=== PATIENT | female | born 1950 | race Caucasian/White ===

== ENCOUNTER 2022-06-13 07:30 | Outpatient (RCR) | payer MEDICARE, SELFPAY | END 2022-09-23 11:10 | disposition home or self-care (01) | PROVIDERS: PCP Family Medicine; Visit Provider Family Medicine | DX: R26.89 Other abnormalities of gait and mobility (principal); Z51.89 Encounter for other specified aftercare | CPT/HCPCS: 97110; 97162 ==

== ENCOUNTER 2024-07-22 08:57 | Emergency (ER) | payer MEDICARE, SELFPAY ==
[2024-07-22 08:59] VITALS: BP 167/100; PULSE 68; RESP 18; TEMP 36.5; O2SAT 95; BMI 32.3
--- NOTE | 2024-07-22 09:32 | CRLHL7_ITS ---
For Patients: As a result of the Century Cures Act, medical imaging exams and procedure reports are released immediately into your electronic medical record. You may view this report before your referring provider. If you have questions, please contact your health care provider. INDICATION: Right lower quadrant pain. COMPARISON: None. TECHNIQUE: CT of the abdomen and pelvis with intravenous contrast. Multiplanar axial, coronal, and sagittal reformats were reconstructed. Contrast: 108 mL Isovue 370. FINDINGS: Lung bases: Mild basilar atelectasis. 2 millimeter pulmonary nodule in the right lower lobe on series 3, image 8. Liver: There is a 3 centimeter benign hepatic hemangioma in hepatic segment VII. No worrisome liver lesions. Gallbladder and bile ducts: There is focal gallbladder wall thickening at the fundus that measures up to 8 millimeters and protrudes beyond the expected location of the margin of the gallbladder on series 2, image 50. No calcified gallstones. No bile duct dilation. Pancreas: Normal. Spleen: Normal. Adrenal glands: Normal. Kidneys: Normal parenchyma. No cyst or solid mass. No calculi. No urinary tract dilation. Urinary bladder: Normal. Pelvis: There is a 2.7 centimeter subserosal partially exophytic left fundal uterine lesion, probably a fibroid. Postmenopausal appearance of both ovaries. Vessels: Atherosclerotic vascular calcifications. Very minimal ectasia of the infrarenal abdominal aorta with a maximum diameter of 2.3 cm. Mesenteric vessels are widely patent. Bowel: No dilated or inflamed bowel. There is a focally inflamed epiploic fatty appendage along the inferolateral cecum. See series 4, image 56. No diverticulosis or diverticulitis. The appendix is normal. Moderate stool burden. Lymph nodes: No adenopathy. Peritoneum: No ascites. No free air. Abdominal wall: Tiny fat containing umbilical hernia. Bones: Right hip arthroplasty. Left hip arthritis. Disc and facet degeneration. No acute or healing fracture. No focal worrisome bone lesions. IMPRESSION: 1. Epiploic appendagitis of the cecum. 2. There is a 2 millimeter right lower lobe pulmonary nodule. Given the overwhelming likelihood of benignity, no specific further follow-up is recommended unless the patient is high risk for primary pulmonary malignancy. In that case, follow-up CT in 1 year can be considered. Please note that all CT scans at this facility use dose modulation, iterative reconstruction, and/or weight-based dosing when appropriate to reduce radiation dose to as low as reasonably achievable. Dictated by Kamila Lawrence MD @ 07/22/2024 11:13:58 AM (Electronically Signed)
[2024-07-22] MEDS: 0.9 % SODIUM CHLORIDE 500 ML 500 ML IV (09:40)
[2024-07-22 10:04] LABS: Basophils Absolute Auto 0.02 K/uL (0.00-0.30); Basophils Percent Auto 0.3 % (0.0-3.0); Eosinophils Absolute Auto 0.12 K/uL (0.00-0.50); Eosinophils Percent Auto 1.7 % (0.0-7.0); Hematocrit 42.8 % (33.0-51.0); Hemoglobin* 14.1 gm/dL (12.0-16.0); Immature Granulocytes Abs Auto 0.01 K/uL (0.00-0.30); Immature Granulocytes Pct Auto 0.1 %; Lymphocytes Absolute Auto 1.43 K/uL (0.90-2.90); Lymphocytes Percent Auto 20.7 % (20-44); Mean Corpuscular HGB Conc 33 gm/dL (32-36); Mean Corpuscular Hemoglobin 32 pg (26-34); Mean Corpuscular Volume 96 fL (80-100); Monocytes Percent Auto 10.7 % (0.0-11.0); Neutrophils Percent Auto 66.5 % (42.0-72.0); Platelet Count* 192 K/uL (140-440); RDW Coefficient of Variation % 12.8 % (11.5-15.5); Red Blood Count 4.48 m/uL (4.00-5.20); White Blood Count* 6.92 K/uL (4.50-11.00)
[2024-07-22 10:06] LABS: Slide Review Reflex No
[2024-07-22 10:11] LABS: Chloride* 108 mmol/L (96-114)
[2024-07-22 10:12] LABS: Albumin* 3.7 g/dL (3.3-5.0); Sodium* 138 mmol/L (135-149)
[2024-07-22 10:14] LABS: Anion Gap 5 mEq/L (7-15); Carbon Dioxide* 25 mmol/L (20-32); Creatinine* 0.7 mg/dL (0.5-1.5); Estimated Glomerular Filt Rate 91 ml/min
[2024-07-22 10:15] LABS: Alanine Aminotransferase* 21 U/L (4-35); Alkaline Phosphatase* 70 U/L (40-150); Aspartate Amino Transferase* 25 U/L (12-35); Bilirubin Direct* 0.2 mg/dL (0.0-0.5); Bilirubin Total* 0.7 mg/dL (0.1-1.5); Blood Urea Nitrogen* 21 mg/dL (7-30); Calcium* 8.8 mg/dL (8.4-10.6); Glucose* 97 mg/dL (60-115); Lipase* 124 U/L (23-300); Total Protein* 6.2 g/dL (6.0-8.3)
[2024-07-22 10:19] LABS: C Reactive Protein* 0.6 mg/dL (0.5-1.0)
[2024-07-22 10:29] LABS: Potassium* 4.1 mmol/L (3.6-5.1)
--- NOTE | 2024-07-22 10:33 | ED.GENADULT ---
HPI - General Adult General Date Seen: 07/22/24 Chief complaint: Abdominal Pain Stated complaint: Pain in right side Time Seen by Provider: 07/22/24 09:04 Source: patient History of Present Illness HPI narrative: Patient is a 73-year-old woman here with her for evaluation of right-sided abdominal pain which started yesterday around dinnertime. She says it started just before she started eating but then got a little worse. She has not had anything to eat since then, but she feels like she could eat. She has not had nausea or vomiting. She had 1 episode of a large amount of soft stool yesterday. She has not had fevers. Denies urinary symptoms. Denies abdominal surgeries. Denies history of similar pain. She quit smoking a long time ago, has a beer and or glass of wine nightly. Related Data Home Medications ?Medication ?Instructions ?Recorded ?Confirmed albuterol sulfate 90 mcg/actuation inhalation 07/22/24 aerosol inhaler ezetimibe 10 mg tablet 10 mg PO DAILY 07/22/24 07/22/24 losartan 100 mg tablet 100 mg PO DAILY 07/22/24 07/22/24 Allergies Allergy/AdvReac Type Severity Reaction Status Date / Time No Known Drug Allergies Allergy Verified 07/22/24 11:00 Review of Systems Status of ROS: Reports: 10 or more systems reviewed and unremarkable except as noted in History and below Exam Narrative: Exam Narrative: Vital signs reviewed In general, alert, nontoxic elderly woman. She looks comfortable. Head: Normocephalic, atraumatic. Eyes: Sclera clear. Pupils equal and reactive. ENT: Mucous membranes moist. Neck: Supple without adenopathy. Heart: Regular rate and rhythm without murmur. Lungs: Clear. No increased work of breathing, crackles or wheezes. Abdomen: Soft, nondistended. She has some mid and lower right sided tenderness including McBurney's point. She does not have rebound or guarding. She has no upper abdominal tenderness, negative Plascenica sign. Extremities: Well perfused, pulses intact. No significant edema. Neurologic: Alert, conversant. Speech fluent, face symmetric. Moves all extremities equally. Skin: Warm, dry well perfused. Affect: Normal. Const: Vital Signs, click to edit/add: Vital Signs - 24 hr 07/22/24 08:59 07/22/24 11:16 Temperature 97.7 F Pulse Rate [Right Pulse Oximeter] 68 37 L Respiratory Rate 18 18 Blood Pressure [Le ft Upper Arm] 167/100 H 147/102 H Pulse Oximetry 95 95 Oxygen Delivery Me thod Room Air Room Air Course Course ED Course: Overall, exam raises the possibility of appendicitis and I think imaging and labs as warranted. Other diagnostic considerations would include diverticulitis, urinary tract infection, kidney stone, colitis, among others. She declines any need for anything for pain right now. I ordered 500 mL of normal saline IV in addition to labs. CBC shows a normal white blood cell count of 7 with a normal diff. Hemoglobin is 14. Metabolic panel is within normal limits, not concerning. LFTs are normal, CRP is 0.6. Lipase is normal at 124. CT scan of the abdomen by my review showed just a little bit of stranding around the cecum of uncertain significance, I did not see diverticuli. Final radiology read linked below of epiploic appendagitis. There is a tiny pulmonary nodule without specific follow-up recommended unless she is very high risk, which with only her remote history of smoking I do not think she is. She did have a brief episode of bradycardia into the 30s. She was perhaps slightly dizzy with this but not significantly. Her blood pressure remained in the 140 systolic. We did do an EKG, but that time the bradycardia had resolved and she had a heart rate of 61, sinus rhythm. Right bundle branch block is noted. She has a normal corrected QT and a normal WI. I have discussed this with her. I think it be reasonable to relate that her primary care doctor. They may elect to do something like a ZIO patch versus observation for now. Reviewed reasons to return in terms of her abdominal symptoms as well as her bradycardia. She is comfortable with discharge. Vital Signs Vital signs: Initial Vital Signs Temperature 97.7 F 07/22/24 08:59 Temperature Source Temporal Artery Scan 07/22/24 08:59 Pulse Rate 68 07/22/24 08:59 Pulse Rhythm Regular 07/22/24 08:59 Respiratory Rate 18 07/22/24 08:59 Blood Pressure 167/100 H 07/22/24 08:59 Blood Pressure Mean 122 H 07/22/24 08:59 Blood Pressure Position Sitting 07/22/24 08:59 Pulse Oximetry 95 07/22/24 08:59 Oxygen Delivery Method Room Air 07/22/24 08:59 Vital Signs Temperature 97.7 F 07/22/24 08:59 Pulse Rate 68 07/22/24 08:59 Respiratory Rate 18 07/22/24 08:59 Blood Pressure 167/100 H 07/22/24 08:59 Pulse Oximetry 95 07/22/24 08:59 Oxygen Delivery Method Room Air 07/22/24 08:59 Temperature 97.7 F 07/22/24 08:59 Pulse Rate 37 L 07/22/24 11:16 Respiratory Rate 18 07/22/24 11:16 Blood Pressure 147/102 H 07/22/24 11:16 Pulse Oximetry 95 07/22/24 11:16 Oxygen Delivery Method Room Air 07/22/24 11:16 Medications Administered Medications: Discontinued Medications Generic Name Dose Route Start Last Admin Trade Name Freq PRN Reason Stop Dose Admin Sodium Chloride 500 mls @ 500 mls/hr 07/22/24 09:32 07/22/24 10:24 0.9 % Sodium Chloride 500 Ml IV 07/22/24 10:31 Infused .Q1H ONE Infusion Medical Decision Making Lab Data Labs: Lab Results 07/22/24 07/22/24 Range/Units 09:45 10:45 WBC 6.92 (4.50-11.00) K/uL RBC 4.48 (4.00-5.20) m/uL Hgb 14.1 (12.0-16.0) gm/dL Hct 42.8 (33.0-51.0) % MCV 96 (80-100) fL MCH 32 (26-34) pg MCHC 33 (32-36) gm/dL RDW Coeff of [place] 12.8 (11.5-15.5) % Plt Count 192 (140-440) K/uL Neut % (Auto) 66.5 (42.0-72.0) % Lymph % (Auto) 20.7 (20-44) % [place] % (Auto) 10.7 (0.0-11.0) % Eos % (Auto) 1.7 (0.0-7.0) % Baso % (Auto) 0.3 (0.0-3.0) % Neut # (Auto) 4.60 (1.7-7.0) K/uL Lymph # (Auto) 1.43 (0.90-2.90) K/uL [place] # (Auto) 0.70 (0.00-0.90) K/UL Eos # (Auto) 0.12 (0.00-0.50) K/uL Baso # (Auto) 0.02 (0.00-0.30) K/uL Abs Immat Gran (auto) 0.01 (0.00-0.30) K/uL Imm/Tot Granulo (auto) 0.1 % Sodium 138 (135-149) mmol/L Potassium 4.1 (3.6-5.1) mmol/L Chloride 108 (96-114) mmol/L Carbon Dioxide 25 (20-32) mmol/L Anion Gap 5 L (7-15) mEq/L BUN 21 (7-30) mg/dL Creatinine 0.7 (0.5-1.5) mg/dL Estimated Creat Clear 46.90 Estimated GFR 91 ml/min Glucose 97 (60-115) mg/dL Calcium 8.8 (8.4-10.6) mg/dL Total Bilirubin 0.7 (0.1-1.5) mg/dL Direct Bilirubin 0.2 (0.0-0.5) mg/dL AST 25 (12-35) U/L ALT 21 (4-35) U/L Alkaline Phosphatase 70 (40-150) U/L C-Reactive Protein 0.6 (0.5-1.0) mg/dL Total Protein 6.2 (6.0-8.3) g/dL Albumin 3.7 (3.3-5.0) g/dL Lipase 124 (23-300) U/L Urine Color Yellow (Yellow) Urine Appearance Clear (Clear) Urine pH 7.5 (5.0-8.5) Ur Specific [place] 1.020 (1.000-1.030) Urine Protein Negative (Negative) Urine Glucose (UA) Negative (Negative) Urine Ketones Negative (Negative) Urine Blood Negative (Negative) Urine Nitrite Negative (Negative) Urine Bilirubin Negative (Negative) Urine Urobilinogen 0.2 (0.2-1.0) Ur Leukocyte Esterase Negative (Negative) Urine RBC 0-2 (0-2) Urine WBC 0-2 (0-5) Ur Squamous Epith Cells Few (None-Few) Urine Bacteria None (None) Imaging Data CT scan - abdomen: Attestation: I have reviewed the pertinent imaging results. Radiologist's impression: Patient: Shanon Martin MR#: [id number] : 1950 Acct:[id number] Loc: ED Service Date: 07/22/[address]: Ordering Physician: Analy Roche M.D. Date of Service: 07/22/24 Procedure(s): CT abdomen pelvis w con Accession Number(s): [id number] cc: Analy Roche M.D.; Luzma Watts D.O.~ For Patients: As a result of the Cures Act, medical imaging exams and procedure reports are released immediately into your electronic medical record. You may view this report before your referring provider. If you have questions, please contact your health care provider. INDICATION: Right lower quadrant pain. COMPARISON: None. TECHNIQUE: CT of the abdomen and pelvis with intravenous contrast. Multiplanar axial, coronal, and sagittal reformats were reconstructed. Contrast: 108 mL Isovue 370. FINDINGS: Lung bases: Mild basilar atelectasis. 2 millimeter pulmonary nodule in the right lower lobe on series 3, image 8. Liver: There is a 3 centimeter benign hepatic hemangioma in hepatic segment VII. No worrisome liver lesions. Gallbladder and bile ducts: There is focal gallbladder wall thickening at the fundus that measures up to 8 millimeters and protrudes beyond the expected location of the margin of the gallbladder on series 2, image 50. No calcified gallstones. No bile duct dilation. Pancreas: Normal. Spleen: Normal. Adrenal glands: Normal. Kidneys: Normal parenchyma. No cyst or solid mass. No calculi. No urinary tract dilation. Urinary bladder: Normal. Pelvis: There is a 2.7 centimeter subserosal partially exophytic left fundal uterine lesion, probably a fibroid. Postmenopausal appearance of both ovaries. Vessels: Atherosclerotic vascular calcifications. Very minimal ectasia of the infrarenal abdominal aorta with a maximum diameter of 2.3 cm. Mesenteric vessels are widely patent. Bowel: No dilated or inflamed bowel. There is a focally inflamed epiploic fatty appendage along the inferolateral cecum. See series 4, image 56. No diverticulosis or diverticulitis. The appendix is normal. Moderate stool burden. Lymph nodes: No adenopathy. Peritoneum: No ascites. No free air. Abdominal wall: Tiny fat containing umbilical hernia. Bones: Right hip arthroplasty. Left hip arthritis. Disc and facet degeneration. No acute or healing fracture. No focal worrisome bone lesions. IMPRESSION: 1. Epiploic appendagitis of the cecum. 2. There is a 2 millimeter right lower lobe pulmonary nodule. Given the overwhelming likelihood of benignity, no specific further follow-up is recommended unless the patient is high risk for primary pulmonary malignancy. In that case, follow-up CT in 1 year can be considered. Please note that all CT scans at this facility use dose modulation, iterative reconstruction, and/or weight-based dosing when appropriate to reduce radiation dose to as low as reasonably achievable. Dictated by Kamila Lawrence MD @ 07/22/2024 11:13:58 AM Discharge Plan Discharge Clinical Impression: Epiploic appendagitis Patient Disposition: Home, Self-Care Condition: Stable Additional Instructions: Epiploic appendagitis does not usually require specific treatment. You can continue to use a leave. Diet can be as tolerated. If you have worsening or severe pain, fevers, vomiting or other worsening, return to the ER for re-evaluation. You had a brief episode of bradycardia here. Your EKG is normal, bradycardia had resolved by the time of the EKG. I would recommend that you talk with your primary care doctor about this. It may be reasonable to set up home monitoring to see if you are having episodes of bradycardia. If you notice significant lightheadedness or fainting, chest pain or other new symptoms, return to the ER. Prescriptions: No Action albuterol sulfate 90 mcg/actuation HFA aerosol inhaler inhalation losartan 100 mg tablet 100 mg PO DAILY ezetimibe 10 mg tablet 10 mg PO DAILY Follow Up/Referrals: Luzma Watts DO [Primary Care Provider] - Stand Alone Forms: [employer] Info Instructions
[2024-07-22 10:52] LABS: Appearance Urine Clear (Clear); Bilirubin Urine Negative (Negative); Blood Urine Negative (Negative); Color Urine Yellow (Yellow); Glucose Urine Negative (Negative); Ketones Urine Negative (Negative); Leukocyte Esterase Urine Negative (Negative); Nitrite Urine Negative (Negative); Protein Urine Negative (Negative); Urobilinogen Urine 0.2 (0.2-1.0); pH Urine 7.5 (5.0-8.5)
[2024-07-22 11:01] LABS: RBC Urine 0-2 (0-2); Squamous Epithelial Cell Urine Few (None-Few); WBC Urine 0-2 (0-5)
[2024-07-22 11:16] VITALS: BP 147/102; PULSE 37; RESP 18; O2SAT 95
== END 2024-07-22 11:45 | disposition home or self-care (01) ==
PROVIDERS: Emergency Provider Emergency Medicine; PCP Family Medicine
DX: K63.89 Other specified diseases of intestine (principal)
CPT/HCPCS: 36415; 74177; 80048; 80076; 81001; 83690; 85025; 86140; 93005; 99284; 99285; J7030; Q9967

== ENCOUNTER 2025-07-11 13:16 | Emergency (ER) | payer MEDICARE, SELFPAY ==
[2025-07-11 13:24] VITALS: BP 176/118; PULSE 70; RESP 16; TEMP 36.3; O2SAT 96
--- OUTSIDE RECORDS SUMMARY | 2025-07-11 16:16 | XMS_ITS | Clinical Summary ---
Author Organization [facility] Address [address] [place] [address] Care Team Providers Care Front Desk Attendant Name Role Phone Clemencia Apodaca HAND GLUER AND SLICER Unavailable [phone] Michel Ramirez MD Primary Care P rovider Allergies Active AllergyReactionsCriticalityNoted DateCommentsRosuvastatinMyalgia 2021 was taking 5mg every other day. AmmugprlnynUnvqeqieydes09/30/2018GlutenRunny Nose12/27/2018 Sinus symptoms Unlisted Allergen (Include Detail In Comments)Elpuboaa02/30/2018 Bandages and adhesives tape ( possibly tegaderm) Medications MedicationSigDispense QuantityRefillsLast FilledStart DateEnd DateStatus vit C,Z-Kr-rfzqh-lutein-zeaxan capsule Take by mouth.Active acetaminophen (TYLENOL) 325 mg tablet Take by mouth.06/16/2017Active ascorbic acid, vitamin C, (VITAMIN C) 1,000 mg tablet One tablet daily.Active medication order composer cranberry mannos 1000, gavascone, KQU853E-Sybhjk Cystine, cider vinegar gummies, mushroom 7 stamens, elderberry swogflh598ctive clobetasol 0.05% (TEMOVATE 0.05% OINTMENT) 0.05 % ointment Indications:Lichen sclerosus of female genitaliaAPPLY TOPICALLY TO AFFECTED AREA(S) TWO TIMES DAILY DIRECTED 60 g 06/26/2023ctive LORazepam (ATIVAN) 0.5 mg tab Indications:Panic disorder without agoraphobiaTake 1 Tablet (0.5 mg) by mouth 2 times daily if needed for Anxiety. 30 Tablet 4Active CPAP Indications:Moderate obstructive sleep apneaCPAP (E0601) machine for home use at pressure: 5-16 , Choice of mask (A7030 or A7034) w/full face cushion (A7031) x1/mo, nasal cushion (A7032) x2/mo, or nasal pillows (A7033) x 2/mo; Length of Need: 99 months; Frequency of use: Daily 1 Each 4Active estradioL (ESTRACE) 0.01% (0.1 mg/g) vaginal cream Indications:Post-menopausal atrophic vaginitisInsert 2 g into the vagina every Monday, Monday and Monday. 42.5 g 4Active MULTIVITAMIN ORAL Take by mouth.Active ezetimibe (ZETIA) 10 mg tablet Indications:hyperlipidemia,mixed hyperlipidemia,statin myalgiaTake 1 Tablet (10 mg) by mouth once daily. 90 Tablet 5Active Additional Information Patient not taking.Reported on 06/30/2025 losartan (COZAAR) 100 mg tablet Indications:Essential hypertensionTake 1 Tablet (100 mg) by mouth once daily. 90 Tablet 5Active aspirin chewable 81 mg tablet Indications:Cerebrovascular accident (CVA) due to stenosis of cerebral artery (HC)Chew 1 Tablet (81 mg) by mouth once daily with a meal.5Active CPAP Indications:MISAEL (obstructive sleep apnea)RESMED CPAP (E0601) machine for home use at pressure: 8 cmw, Choice of mask (A7030 or A7034) w/fullface cushion (A7031) x1/mo, nasal cushion (A7032) x2/mo, or nasal pillows (A7033) x 2/mo; Length ofNeed: 99 months; Frequency of use: Daily 1 Each 5Active Active Problems ProblemNoted DateDiagnosed DateObstructive sleep apnea syndrome, moderate 04/10/2025 Overview (04/10/2025): Sleep study 2023 Ymjzeyvwwxm48/07/2025PVC (premature ventricular contraction)09/09/2024 Overview (09/09/2024): PVC burden 5% seen on zio 07/2024 Pulmonary nodule seen on imaging study08/08/2024 Overview (04/04/2025): 06/2024 2mm R lung. Option repeat CT in 1 yr in high risk Depression, /05/2024Lichen sclerosus of female guekyknli96/16/2019 Primary osteoarthritis of hip12/08/2017Cerebrovascular accident (CVA) due to stenosis of cerebral sifieb9410/02/2015 Overview (11/27/2017): 09/2015- memory issue ( amnesia ) Colon polyp03/21/2011 Overview (11/26/2021): Colonoscopy 02/2011 polyp repeat in 5 years Colonoscopy 10/2021 diverticulosis, repeat in 10 years Hx of panic disorder without agoraphobia Overview (11/27/2017): Ativan prn basis Essential hypertensionOther and unspecified hyperlipidemia Overview (08/24/2007): 08/22/07 TC 212; TG 168; HDL 44; LDL 134; VLDL 34; RISK 4.8 Resolved Problems ProblemNoted DateDiagnosed DateResolved DateCerebrovascular accident (CVA) Overview (10/02/2015): left hippocampal stroke. 09/25/15. Vitamin D hddpdwzwfb31Depressive disorder, not elsewhere dysyyezbvm67/30/8398Czjfrkb65/15/2020Screening for malignant neoplasm of the vkrguu7310/23/2009 Overview (05/10/2007): 11/28/02 Other screening /26/2010 Overview (05/10/2007): 12/05/2002 Encounters DateTypeDepartmentCare QfnhXavylevisnw45/11/8940Jbzalb43/09/2025Results Follow-Up [facility] [address] [place] [address] Michel Ramirez MD Qufhgqx7807/07/2025 10:50 AM CSTAncillary Procedure [facility] [address] [place] [address] Iserzew8207/07/20253460Pjmeug93/09/20242956Mntsso07/01/2025 11:30 AM CSTOffice Visit [facility] [address] [place] [address] Daniel Slater MD Sleep Follow-up06/30/20252091Txhhcy31/26/2025Travelfrom Last 3 Months Immunizations ImmunizationAdministration DatesNext DueCOVID-19 vaccine (Moderna 100mcg/0.5mL) MD LACIEV11/13/2020,10/15/2020neumococcal Conj 20-valent (Prevnar 20)01/09/2023 Pneumococcal Poly,23-Valent (Pneumovax)12/05/2016Tdap108/27/2022,08/06/2009Zoster (Shingrix-RZV, recombinant)09/10/2021,01/05/2021Zoster (Zostavax-ZVL, live) 03/13/2012 Family History Medical HistoryRelationNameCommentsHyperlipidemiaDaughterDiabetesFatherniddm OtherFatherEyes, AAAPsychiatric illnessFatherThyroid DiseaseFatherHeart Disease Motherafib, CHF, on oxygenHyperlipidemiaMotherHypertensionMotherOtherMotherEyes HypertensionOthersiblingCancer-breastNo Family HistoryCancer-colonNo Family HistoryCancer-ovarianNo Family HistoryRelationNameStatusCommentsBrotherAlive DaughterFatherDeceased (Age 85)MotherDeceasedOtherSisterAliveX3 Social History Tobacco UseTypesPacks/DayYears UsedDateSmoking Tobacco: FormerCigarettes0.520 03/29/1988 - 03/29/2008Smokeless Tobacco: Never Tobacco Cessation:Counseling Given: Yes Comments:5 cigs a day for 25yr. Alcohol UseStandard Drinks/WeekCommentsYes0 (1 standard drink = 0.6 oz pure alcohol)2x weeklyPHQ-2AnswerDate RecordedPHQ-2 TOTAL GPUXL952Social ConnectionsAnswerDate RecordedDo you often feel lonely or isolated from those around you?Financial Resource StrainAnswerDate RecordedDifficulty of Paying Living Tgwqjymt632/11/2025Difficulty of Paying Living ExpensesNot on file 07/10/2025Food InsecurityAnswerDate RecordedDo you worry your food will run out before you are able to buy more?Transportation NeedsAnswerDate RecordedDoes lack of transportation keep you from medical appointments?1 07/10/2025Does lack of transportation keep you from work, meetings or getting things that you need?Housing StabilityAnswerDate RecordedWhat is your housing situation today?UtilitiesAnswerDate RecordedDo you have trouble paying for utilities (for example, heat, electricity, water, phone)?1 07/10/2025CommentsNoSex and Gender InformationValueDate RecordedSex Assigned at BirthNot on fileLegal TowTzobpf53/14/2013 7:06 AM CSTGender Identity Not on fileSexual OrientationNot on fileOccupationIndustryJob Start DateJob End DateRNNot on fileNot on fileNot on file Obstetrics History GravidaParaTermPretermABIABSABEctopicMultipleLivingLive Webunf663WhaeVmcmlzmNB Total LaborLabor/2nd/9dpAkjomeRfaXzyfAgtiKHWOekJ5O9CgmwMabrLqkt Last Filed Vital Signs Vital SignReadingTime TakenCommentsBlood Yweturjv015/9506/30/2025 12:28 PM BEAD WRAPPER Xlxmy580306/30/2025 11:33 AM WDVWpldbmnrtvz04.6 ??C (97.8 ??F)05/12/2024 1:18 PM CDTRespiratory Eaaw606305/12/2024 1:18 PM CDTOxygen Veytlzvtlv25%06/30/2025 11:33 AM CSTInhaled Oxygen Concentration--Uzvqbo29.2 kg (209 lb 12.8 oz)06/30/2025 11:33 AM NTFSihjmr730 cm (5' 6.54)06/30/2025 11:33 AM CSTBody Mass Index33.32 06/30/2025 11:33 AM BEAD WRAPPER Plan of Treatment DateTypeDepartmentCare Team (Latest Contact Info)Jwgkscexvel08/15/2025 2:40 PM CSTOffice Visit [facility] [address] [place] [address] Michel Ramirez MD [address] [place] [address] Health MaintenanceDue DateLast DoneCommentsRSV vaccine for adults or (1 - Risk 50-74 years 1-dose series)2000Influenza Vaccine (#1)2025 COVID-19 vaccine series ( season)/, 09/07/2024, 08/31/2023, Additional history existsMedicare Wellness for age 65+04/05/2026 04/04/2025, 04/03/2024, 01/09/2023, Additional history existsDepression screening for age 12+/03/2025, 04/04/2025, 04/05/2024, Additional history existsMammogram for age 45-7508/, 09/14/2023, 08/24/2022, Additional history existsBMI (ht and wt on same day) for age 18+ /07/2024, 04/04/2025, 04/03/2024, Additional history exists Colonoscopy through age 7503//, 11/26/2021, 11/26/2021, Additional history existsLipids for age 45-7510//08/2023, 01/18/2023, 11/11/2021, Additional history existsTetanus tupgyhh16, 08/06/2009Zoster (shingles) series for age 50+Msnsgmwni41/11/2022, 01/05/2021, 03/13/2012Pneumococcal series for age 50+Beobmplqr97/12/2023, 12/05/2016 Hepatitis C screening for age 18-05Zbifatybx48/21/2023DEXA/DXA scan for age 65+ Xueawesge66/02/2024, 09/12/2016, 09/24/2009Hepatitis B series for 19+Aged OutNo longer eligible based on patient's age to complete this topic Medical Devices ImplantedTypeAreaManufacturerDevice IdentifierShelf Expiration DateModel / Serial / LotShell Hip Rt Od54mm Yazidi Adm X3 - [id number] Implanted:Qty: 1 on 12/08/2017 [facility] Sikjabvcuaww01/16/[id number]# / / [id number] Hip Id28 Od54mm Adm X3 Pe - [id number] Implanted:Qty: 1 on 12/08/2017 [facility]: [facility] Ssiltzrrgagr00/24/[id number]# / / [id number] Hip Sz4 127deg Accolade Ii - [id number] Implanted:Qty: 1 on 12/08/2017 [facility] Tgcuruxvwqpm15/09/[id number]# / / [id number] Hip Od28mm +4 Biolox Delta C-Taper Alumina Cer - [id number] Implanted:Qty: 1 on 12/08/2017 [facility] Kappdsoxqtbv89/02/[id number]# / / [id number] Procedures Procedure NamePriorityDate/TimeAssociated DiagnosisCommentsCT CHEST WORoutine 07/07/2025 11:41 AM BEAD WRAPPER Pulmonary nodule seen on imaging study XR MAMMO LEIGHTON BILAT UAWHLFXqazfth24/09/2025 10:12 AM CDT Visit for screening mammogram XR DXA BONE DENSITY 2 SITES INEDNBjggogd51/02/2024 11:02 AM CDT Post-menopausal LIPID PANEL W REFLEX MEASURED WEZIperpyx47/02/2024 10:58 AM CDT Mixed hyperlipidemia LC HCV ANTIBODY RFX TO QUANT LFHLnlgjce28/21/2023 9:38 AM CDT Need for hepatitis C screening test COLONOSCOPY LCOUQCPIMXnyhonk68/29/2022 7:55 AM CDT History of colon polyps Diverticulosis from Last 3 Months or Most Recently Relevant to Health Maintenance Results * CT CHEST WO (07/07/2025 11:41 AM BEAD WRAPPER)Anatomical RegionLateralityModalityCHEST, THORAX, HEARTComputed TomographySpecimen (Source)Anatomical Location / LateralityCollection Method / VolumeCollection TimeReceived Time07/08/2025 9:58 AM BEAD WRAPPER Impressions 07/08/2025 9:58 AM BEAD WRAPPER 1. The previously described 2 mm right lower lobe pulmonary nodule is not seen, may have been infectious/inflammatory since resolved. A 2 mm right upper lobe nodule not included in the field of view previously does not require further follow-up based on size. 2. Suspected early interstitial lung disease without honeycombing centered in the bilateral lung bases. Please note that all CT scans at this facility use dose modulation, iterative reconstruction, and/or weight-based dosing when appropriate to reduce radiation dose to as low as reasonably achievable. Dictated by Michel Hernandez MD @ 07/08/2025 9:58:53 AM (Electronically Signed) Narrative 07/08/2025 9:58 AM BEAD WRAPPER For Patients: As a result of the Century Cures Act, medical imaging exams and procedure reports are released immediately into your electronic medical record. You may view this report before your referring provider. If you have questions, please contact your health care provider. INDICATION: Pulmonary nodule follow-up. TECHNIQUE: CT chest without contrast. COMPARISON: CT abdomen and pelvis 07/22/2024. FINDINGS: Lungs, pleura, and airways: The previously described 2 mm right lower lobe pulmonary nodule is not seen. There is a 2 mm right upper lobe solid nodule (series 9, image 27). Lingular scarring/atelectasis. Basilar predominant subpleural reticulation without honeycombing but with associated mild bronchiectasis could reflect early interstitial lung disease. No focal consolidation. No pleural effusions, pleural thickening, or pneumothorax. Airways are clear. No endobronchial lesion. Heart and vasculature: Heart size is normal. No pericardial effusion. Thoracic aorta and pulmonary arteries are normal in caliber. Three vessel aortic arch. Mild coronary atherosclerosis. Lymph nodes/mediastinum: No mediastinal, hilar, or axillary adenopathy. Visualized portions of the thyroid are within normal limits. Soft tissues: Normal. Upper abdomen: No acute findings. Unchanged splenic artery pseudoaneurysm. Unchanged right hepatic lobe hemangioma better characterized on prior contrast- enhanced CT. Bones: No acute fracture. No worrisome osseous lesion. Mild degenerative changes of the thoracic spine with mild S shaped thoracolumbar curvature. Procedure Note Michel Hernandez MD - 07/08/2025 For Patients: As a result of the Cures Act, medical imagingexams and procedure reports are released immediately into your electronicmedical record. You may view this report before your referring provider.If you have questions, please contact your health care provider. INDICATION: Pulmonary nodule follow-up. TECHNIQUE: CT chest without contrast. COMPARISON: CT abdomen and pelvis 07/22/2024. FINDINGS: Lungs, pleura, and airways: The previously described 2 mm right lower lobe pulmonary nodule is not seen. There is a 2 mm right upper lobe solidnodule (series 9, image 27). Lingular scarring/atelectasis. Basilar predominant subpleural reticulation without honeycombing but with associated mild bronchiectasis could reflect early interstitial lungdisease. No focal consolidation. No pleural effusions, pleural thickening, or pneumothorax. Airways are clear. No endobronchial lesion. Heart and vasculature: Heart size is normal. No pericardial effusion.Thoracic aorta and pulmonary arteries are normal in caliber. Three vesselaortic arch. Mild coronary atherosclerosis. Lymph nodes/mediastinum: No mediastinal, hilar, or axillary adenopathy. Visualized portions of the thyroid are within normal limits. Soft tissues: Normal. Upper abdomen: No acute findings. Unchanged splenic artery pseudoaneurysm. Unchanged right hepatic lobe hemangioma better characterized on priorcontrast- enhanced CT. Bones: No acute fracture. No worrisome osseous lesion. Mild degenerativechanges of the thoracic spine with mild S shaped thoracolumbar curvature. IMPRESSION: 1. The previously described 2 mm right lower lobe pulmonary nodule is notseen, may have been infectious/inflammatory since resolved. A 2 mm rightupper lobe nodule not included in the field of view previously does notrequire further follow-up based on size. 2. Suspected early interstitial lung disease without honeycombing centeredin the bilateral lung bases. Please note that all CT scans at this facility use dose modulation,iterative reconstruction, and/or weight-based dosing when appropriate toreduce radiation dose to as low as reasonably achievable. Dictated by Michel Hernandez MD @ 07/08/2025 9:58:53 AM (Electronically Signed) Authorizing ProviderResult TypeResult StatusMichael Charlie-Younger James MDCT Final Result * XR MAMMO LEIGHTON BILAT SCREEN (04/08/2025 10:12 AM CDT)Anatomical Region LateralityModalityBREASTS, Breast Left, Breast RightBilateralMammography Specimen (Source)Anatomical Location / LateralityCollection Method / Volume Collection TimeReceived Time Impressions 04/08/2025 5:05 PM CDT There is no radiographic evidence for malignancy. Recommend annual mammograms. MAMMOGRAM ASSESSMENT: ??ACR 1 Negative PATIENTS: You will also receive a letter with your examination results in an easy to read format. ??If you have questions about your results, please contact your referring provider. Narrative 04/08/2025 5:05 PM CDT For Patients: As a result of the 21st Century Cures Act, medical imaging exams and procedure reports are released immediately into your electronic medical record. You may view this report before your referring provider. If you have questions, please contact your health care provider. XR MAMMO LEIGHTON BILAT SCREEN [[id number]] CLINICAL HISTORY: ??This is an asymptomatic 74 y.o. patient. INDICATION FOR EXAM: Mammogram Screening. TECHNIQUE: CC and MLO views were obtained. ??This study was evaluated with the assistance of Computer-Aided Detection. Breast Tomosynthesis was used in interpretation. COMPARISON FILM: Yes 09/14/23 [employer] 08/24/22 AllRIWI FINDINGS: ??There are scattered areas of fibroglandular density. There are no dominant masses, suspicious micro calcifications or areas of architectural distortion. Authorizing ProviderResult TypeResult StatusMicaural Katelyn Ramirez MD MAMMOFinal Result * XR DXA BONE DENSITY 2 SITES AXIAL (05/01/2024 11:02 AM CDT)Anatomical Region LateralityModalitySpine, HIPS, HIPL, HIPROtherSpecimen (Source)Anatomical Location / LateralityCollection Method / VolumeCollection TimeReceived Time Impressions 05/01/2024 4:31 PM CDT Normal bone density. RECOMMENDATIONS: The National Osteoporosis Foundation recommends pharmacologic treatment for patients with T-scores of -2.5 or less, patients with prior history of fragility fractures, or patients with 10-year probability of greater than 3% at hips or greater than 20% of suffering major osteoporotic fractures. Recommend continued optimization of calcium and vitamin D intake through dietary means and/or supplementation and regular exercise. Repeat scan recommended in 3-5 years. Maribel Shelton PA-C [facility] 05/01/2024 ?? Narrative 05/01/2024 4:31 PM CDT For Patients: Results are automatically released to your [employer] account once available, in compliance with federal regulations. This means that you may see your results before your provider has had a chance to review them. Please allow 2-3 business days for your provider to comment on the results. XR DXA Bone Mineral Density (BMD) EXAM LOCATION: [facility] [address] [facility] [address] PATIENT NAME: Shanon Hyman DATE OF : 1950 EXAM DATE: 05/01/2024 REQUESTING PROVIDER: Luzma Watts, DO GENDER AT : female HEIGHT: 5' 6 (04/03/2024) WEIGHT: ??207 lb 6.4 oz (04/03/2024) MENOPAUSAL STATUS: Postmenopausal RACE/ETHNICITY: White RISK FACTORS: Smoking (prior) and White Race CURRENT MEDICATION FOR BONE LOSS: NONE INDICATION: Screening for osteoporosis, Post-Menopause, and Follow-up of normal DXA COMPARISON DATE(S): 2016 DXA scans are compared to prior studies for a patient only when the two (or more) studies were performed on the same scanner. It is not possible to compare data generated on one scanner to data from another because there are not standards in DXA equipment. This applies even if the two scanners are made by the same commercial plumber. PROCEDURE: Dual-energy x-ray absorptiometry performed with routine technique. Reporting is completed in the form of a T-score. The T-score represents the standard deviation from peak bone mass based on young healthy adult. A Z-score is used for diagnosis in premenopausal women, and for men under the age of 50. FINDINGS: RESULT LUMBAR SPINE L2 - L4 ??BMD: 1.366 g/cm2 T-Score: + 1.2 Z-Score: + 2.0 Change from prior in 2017: ??Increase 3.1%. RESULTS FEMUR Left femoral neck BMD: 1.073 g/cm2 T-Score: + 0.2 Z-Score: + 1.5 Change from prior in 2017: ??Decrease 3.6%. Left hip BMD: 0.993 g/cm2 T-Score: - 0.1 Z-Score: + 0.8 Change from prior in 2017: ??Decrease 5.2%. WHO criteria: Normal: T-score at or above -1 SD Osteopenia: T-score between -1.1 and -2.4 SD Osteoporosis: T-score at or below -2.5 SD Authorizing ProviderResult TypeResult StatusTamara Merry Detert DODEXAFinal Result * (ABNORMAL) LIPID PANEL W REFLEX MEASURED LDL (05/01/2024 10:58 AM CDT) ComponentValueRef RangeTest MethodAnalysis TimePerformed AtPathologist SignatureCHOLESTEROL, OGMPV333(H)<200 mg/dLQuest Cross MediaworkseHDL ZQJISNZIAKL70> OR = 50 mg/dLQuest Cross MediaworkseTRIGLYCERIDES236(H)<150 mg/dLQuest Cartesian DaleComment: If a non-fasting specimen was collected, consider repeat triglyceride testing on a fasting specimen if clinically indicated. Kathi et al. J. of Clin. Lipidol. 2015;9:129-169. LDL-EBKKMJWTKGY709(H)mg/dL (calc)[facility] Cartesian DaleComment: LDL-C levels > or = 190 mg/dL may indicate familial hypercholesterolemia (FH). Clinical assessment and measurement of blood lipid levels should be considered for all first degree relatives of patients with an FH diagnosis. LDL Cholesterol (LDL-C) levels > or = 300 mg/dL may indicate homozygous familial hypercholesterolemia (HoFH). Untreated, these extremely high LDL-C levels can result in premature CV events and mortality. Patients should be identified early and provided appropriate interventions to reduce the cumulative LDL-C burden from . For questions about testing for familial hypercholesterolemia, please call [facility] at [email or web address].GENE.INFO. Kathi Sherwood, et al. J National Lipid Association Recommendations for Patient-Centered Management of Dyslipidemia: Part 1 Journal of Clinical Lipidology 2015;9(2), 129-169. Nahed Soria. et al. (2014). Homozygous familial hypercholesterolaemia: new insights and guidance for clinicians to improve detection and clinical management. Heart Journal, 35(32), 6671-7305. Reference range: <100 Desirable range <100 mg/dL for primary prevention; <70 mg/dL for patients with CHD or diabetic patients with > or = 2 CHD risk factors. LDL-C is now calculated using the Edmar-Finesse calculation, which is a validated novel method providing better accuracy than the Friedewald equation in the estimation of LDL-C. Edmar OLIVIA et al. VIK. 2013;310(19): 5549-2484 (http://education.Trigg[employer]rap.[employer]/faq/VRM183) CHOL/HDLC RATIO5.8(H)<5.0 (calc)[facility] HDL CHOLESTEROL 254(H)<130 mg/dL (calc)BloxySwift County Benson Health ServiceseComment: Non-HDL level > or = 220 is very high and may indicate genetic familial hypercholesterolemia (FH). Clinical assessment and measurement of blood lipid levels should be considered for all first-degree relatives of patients with an FH diagnosis. For patients with diabetes plus 1 major ASCVD risk factor, treating to a non-HDL-C goal of <100 mg/dL (LDL-C of <70 mg/dL) is considered a therapeutic option. Specimen (Source)Anatomical Location / LateralityCollection Method / Volume Collection TimeReceived TimeBloodBLOOD SPECIMEN / Kxqgcjm0605/01/2024 10:58 AM CDT 05/01/2024 10:59 AM CDT Narrative Authorizing ProviderResult TypeResult StatusTamara Merry Detert DOCHEMISTRYFinal ResultPerforming OrganizationAddressCity/State/ZIP CodePhone Number [facility] [address] [place] [address], [facility] [address] [place] [address] * LC HCV ANTIBODY RFX TO QUANT PCR (01/18/2023 9:38 AM CDT)ComponentValueRef RangeTest MethodAnalysis TimePerformed AtPathologist SignatureHCV AbNon ReactiveNon Oohipyrf68/23/2023 11:09 AM CDTLABCORP [facility] ([facility])Specimen (Source)Anatomical Location / Laterality Collection Method / VolumeCollection TimeReceived TimeBloodBLOOD SPECIMEN / UnknownVenipuncture / Xjhnwuk5401/18/2023 9:38 AM CDT01/18/2023 9:[address] [facility] ([facility] - 01/20/2023 11:09 AM CDT Performed at: [address] [place] [address] ??[id number] Environmental Monitoring Specialist: Aydin Hope MD, Phone: ??[phone] Authorizing ProviderResult TypeResult StatusTamara Merry Watts DOLABORATORYFinal ResultPerforming OrganizationAddressty/State/ZIP CodePhone Number [facility]) [address] [place] [address], * COLONOSCOPY (11/26/2021 7:41 AM CDT)Specimen (Source)Anatomical Location / LateralityCollection Method / VolumeCollection TimeReceived Time11/26/2021 7:41 AM CDT Narrative Transcriptions Edmar Stephen MD - 11/26/2021 9:17 AM CDT Patient Name: Shanon Hyman Procedure Date: 11/26/2021 Gender: Female Date of : 1950 Admit Type: Outpatient Procedure: Colonoscopy Proceduralist: Edmar Stephen MD , Rosalina Castillo (Nurse) Referring MD: Luzma Watts Indications/Pre-Op Diagnosis: High risk colon cancer surveillance:Personal history of adenoma less than 10 mm in size, Last colonoscopy: February 2011 Medications: Fentanyl 100 micrograms IV, Midazolam 2 mgIV, The level of sedation administered wasmoderate Procedure Description: The patient had risks, benefits and alternatives explained to andgave informed consent. The patient had a stable cardiopulmonary status and judged an adequate candidate for conscious sedation. The Colonoscope was passed through the anus and advanced to thececum, identified by appendiceal orifice and ileocecal valve. Thecolonoscopy was performed without difficulty. The patient tolerated the procedure well. The quality of the bowel preparation was good. The ileocecal valve, appendiceal orifice, and rectum were photographed. Complications: No immediate complications. Estimated Blood Loss & Specimen: Estimated blood loss: none. Specimen collected - None Findings: The perianal and digital rectal examinations were normal. A few small-mouthed diverticula were found in the sigmoid colon. The exam was otherwise without abnormality. Impressions/Post-Op Diagnosis: - Diverticulosis in the sigmoid colon. - The examination was otherwise normal. - No specimens collected. Recommendation: - Patient has a contact number available for emergencies. The signsand symptoms of potential delayed complications were discussed with the patient. Return to normal activities tomorrow. Written discharge instructions were provided to the patient. - Resume previous diet. - Continue present medications. - Repeat colonoscopy in 10 years for surveillance. Moderate Sedation: Moderate (conscious) sedation was administered by the endoscopy nurse and supervised by the endoscopist. The following parameters were monitored: oxygen saturation, heart rate, respiratory rate, blood pressure, adequacy of pulmonary ventilation and reponse to care. Please refer to the patient's medical record flowsheets and nursing notes for moderate sedation details. Total physician intraservice time was 19 minutes. Edmar Stephen MD 11/26/2021 9:17:18 AM This report has been signed electronically. Note Initiated On: 11/26/2021 7:41 AM Procedure Code(s): --- Professional --- 63674, Colonoscopy, flexible; diagnostic, including collection of specimen(s) bybrushing or washing, when performed (separateprocedure) Diagnosis Code(s): --- Professional --- Z86.010, Personal history of colonicpolyps K57.30, Diverticulosis of large intestine without perforation or abscess withoutbleeding CPT copyright 2020 [employer]. All rights reserved. The codes documented in this report are preliminary and upon front desk attendant reviewmay be revised to meet current compliance requirements. Scope In: 8:53:03 AM Scope Withdrawal Time 0 hours 6 minutes 57 seconds Scope Out: 9:09:19 AM Authorizing ProviderResult TypeResult StatusMarmarj Stephen MDPROCEDURE ORD Final Result from Last 3 Months or Most Recently Relevant to Health Maintenance Insurance Advance Directives * Full Code (Latest Code Status on File) Date ActivatedDate InactivatedComments12/08/2017 3:47 PM12/09/2017 4:37 PM * Full Code Date ActivatedDate InactivatedComments12/08/2017 9:21 AM12/08/2017 3:47 PM Care Teams Team MemberRelationshipSpecialtyStart DateEnd Date Michel Ramirez MD [address] [place] [address] PCP - GeneralFamily Practice09/23/24 Clemencia Apodaca NP Sleep Medicine03/06/24
--- OUTSIDE RECORDS SUMMARY | 2025-07-11 16:16 | XMS_ITS | Clinical Summary ---
Author Organization [facility] Address [address] [place] [address] Care Team Providers Care Linen Clerk Name Role Phone Unavailable Primary Care Provider Unavailabl e Source Comments Patient records contain information from all sites at [facility]. For routine questions regarding patient records, call [phone] during business hours, M-F 8:00 AM - 5:00 PM Central Time. Record requests for emergency care only can be directed to [phone] at any time.[facility] Social History Tobacco UseTypesPacks/DayYears UsedDateSmoking Tobacco: Never Assessed CommentsUnknownSex and Gender InformationValueDate RecordedSex Assigned at Not on fileLegal MxeEjeuql29/04/2024 1:49 PM CDTGender IdentityNot on fileSexual OrientationNot on file Plan of Treatment Health MaintenanceDue DateLast DoneCommentsBone Density Scan (Osteoporosis Screen)1CT Ovqqtmawcsiq20/27/3612Kshiyddch52/27/6138BXP31 1950 Hepatitis C Ukawnslro42/27/1951epression Screening (Annual PHQ-2)07/31/2024Fall Risk Screen (Annual)07/31/20249123Yaoszmfev83/15/359488/, 4COVID-19 Vaccine ( season)502/07/2023, 06/03/2022, 07/16/2021, Additional history existsInfluenza Vaccine (#1)03/31/2025Fasting Glucose for Diabetes Rqjfjiwzk57/, 11/11/2021, 09/04/2020, Additional history qjlunfHxgfyzybamm03/29/203204/olorectal Cancer Screening 2DTaP,Tdap,and Td Vaccines (3 - Td or Tdap)3108/27/2022, 08/06/2009Zoster AikwdkqeQytjnwbfm19/11/2022, 01/05/2021, 03/13/2012Pneumococcal vaccine (50+ years)Cgkvrbpzy90/12/2023, 12/05/2016IPV VaccinesAged OutNo longer eligible based on patient's age to complete this topic
== END 2025-07-11 16:17 | disposition left against medical advice (07) ==
LOC: ED 16:14
PROVIDERS: Emergency Provider Emergency Medicine; PCP Family Medicine
DX: Z53.21 Procedure and treatment not carried out due to patient leaving prior to being seen by health care provider (principal)